=== PATIENT | male | born 1955 | race Caucasian/White ===

== ENCOUNTER 2023-09-04 22:24 | Emergency (ER) | payer OTHER ==
[2023-09-04 22:41] VITALS: BP 122/72; PULSE 82; RESP 16; TEMP 98.4; BMI 27.5
[2023-09-04 22:55] LABS: HEMATOCRIT 43.7 % (35.4-49); HEMOGLOBIN 14.6 G/dL (11.7-16.9); MCH 28.6 pg (25.7-33.7); MCHC 33.4 g/dl (32.0-35.9); MEAN CELL VOLUME 85.9 fl (80-96); MEAN PLT VOLUME 9.4 fl (7.5-11.1); PLATELET COUNT 224.7 10^3/uL (134-434); RBC 5.09 10^6/uL (4.00-5.60); RDW 14.1 % (11.9-15.9); WHITE BLOOD COUNT 11.2 10^3/uL (4.0-10.8)
[2023-09-04 23:14] LABS: ALBUMIN 4.2 g/dl (3.4-5.0); BILIRUBIN,TOTAL 0.7 mg/dl (0.2-1); BLOOD UREA NITROGEN 20.9 mg/dl (7-18); CALCIUM 9.3 mg/dl (8.5-10.1); CREATININE 1.2 mg/dl (0.6-1.3); MAGNESIUM 2.1 mg/dL (1.8-2.4); PHOSPHOROUS 3.5 (2.5-4.9); POTASSIUM 3.8 mmol/L (3.5-5.1); SGPT/ALT 15.7 U/L (7-52); TOT PROT 6.2 g/dl (6.4-8.2)
== END 2023-09-05 01:19 | disposition home or self-care (01) ==
LOC: FER 22:24
DX: R55 Syncope and collapse (principal); R10.9 Unspecified abdominal pain; R42 Dizziness and giddiness
CPT/HCPCS: 36415; 70450-TC; 80053; 82550; 83735; 84100; 84484; 85027; 93005; 99285-25